=== PATIENT | female | born 1995 | race Caucasian/White ===

== ENCOUNTER 2019-09-29 14:27 | Emergency (ER) | payer OTHER ==
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
[2019-09-29 15:02] LABS: INFLUENZA A NEGATIVE (NEGATIVE); INFLUENZA B POSITIVE (NEGATIVE)
== END 2019-09-29 15:28 | disposition home or self-care (01) ==
LOC: ER 14:27
DX: J10.1 Influenza due to other identified influenza virus with other respiratory manifestations (principal)
CPT/HCPCS: 87400; 99282